=== PATIENT | male | born 1960 | race Two or more races ===

== ENCOUNTER 2023-10-29 10:51 | Emergency (ER) | payer OTHER ==
[~2023-10-29] VITALS: Ht 177.8 cm; Wt 113.4 kg
[~2023-10-29 10:51] MED LIST: KETO10TA2 PO; NORVASC5 MG; ORPH100T PO; PROVENTIL S1 ML/5 MG; SIMVASTATIN5 MG; ZYRTEC10 MG
[2023-10-29] MEDS ORDERED: KETOROLAC TROMETHAMINE 30 MG VIAL IM STA (11:29)
[2023-10-29] MEDS ORDERED: ORPHENADRINE CITRATE 30 MG/ML AMPUL IM STA (11:30)
[2023-10-30] MEDS ORDERED: MEDROLPACK PO (20:35)
[2023-10-30] MEDS ORDERED: DICLOFENAC SODI75 MG PO (20:35)
== END 2023-10-29 12:28 | disposition home or self-care (01) ==
LOC: ER 10:51
DX: M54.9 Dorsalgia, unspecified (principal); Z91.013 Allergy to seafood

== ENCOUNTER 2023-10-30 17:52 | Emergency (ER) | payer OTHER ==
[~2023-10-30] VITALS: Ht 180.3 cm; Wt 113.4 kg
[2023-10-30] MEDS ORDERED: KETOROLAC TROMETHAMINE 60 MG VIAL IM ONE (19:30)
[2023-10-30] MEDS ORDERED: ORPHENADRINE CITRATE 30 MG/ML AMPUL IM ONE (19:30)
[2023-10-30] MEDS ORDERED: MEDROLPACK PO (20:35)
[2023-10-30] MEDS ORDERED: DICLOFENAC SODI75 MG PO (20:35)
== END 2023-10-30 20:59 ==
LOC: ER 17:53
DX: M54.50 Low back pain, unspecified (principal); I10 Essential (primary) hypertension; J45.909 Unspecified asthma, uncomplicated; E78.49 Other hyperlipidemia; M51.36 Other intervertebral disc degeneration, lumbar region
CPT/HCPCS: 72100; 96372; 99283; J1885; J2360